=== PATIENT | female | born 1995 | race Caucasian/White ===

== ENCOUNTER 2020-04-12 13:29 | Emergency (ER) | payer OTHER ==
[~2020-04-12] VITALS: Ht 170.2 cm; Wt 163.3 kg
[~2020-04-12 13:29] MED LIST: BIRTHCONTROL; BUPR75; CYCL10 PO; IBUP600 PO; IBUP800 PO; Norco 5-325 Ta1 EACH PO; Prozac20 MG PO; Vibramycin100 MG PO; Zofran Odt4 MG SL
== END 2020-04-12 14:52 | disposition home or self-care (01) ==
LOC: ER 13:29
DX: U07.1 COVID-19 (principal); R05 Cough; R50.9 Fever, unspecified; Z88.0 Allergy status to penicillin
CPT/HCPCS: 71046; 99284-25

== ENCOUNTER 2020-11-22 18:38 | Emergency (ER) | payer OTHER ==
[~2020-11-22] VITALS: Ht 170.2 cm; Wt 154.2 kg
[~2020-11-22 18:38] MED LIST changes: -ONDA4 PO
[2020-11-22] MEDS ORDERED: Norco 5-325 Ta1 EACH PO (18:50)
[2020-11-22] MEDS ORDERED: ONDA4 PO (18:55)
== END 2020-11-22 18:59 | disposition home or self-care (01) ==
LOC: ER 18:38
DX: K80.70 Calculus of gallbladder and bile duct without cholecystitis without obstruction (principal); Z88.0 Allergy status to penicillin; Z91.013 Allergy to seafood
CPT/HCPCS: 99283; A9270

== ENCOUNTER → 2020-11-22 | Outpatient (CLI) | payer OTHER ==
[~2020-11-22] MED LIST changes: +ONDA4 PO
[2020-11-22 10:56] LABS: BASOPHILS ABSOLUTE AUTO 0.03 K/mm3 (0.00-0.23); BASOPHILS PERCENT AUTO 0 % (0-2); EOSINOPHILS ABSOLUTE AUTO 0.05 K/mm3 (0.00-0.68); EOSINOPHILS PERCENT AUTO 1 % (0-6); Hematocrit 43.2 % (33.0-51.0); Hemoglobin 14.3 g/dL (11.5-16.0); IMMATURE GRAN ABSOLUTE AUTO 0.03 K/mm3 (0.00-0.10); IMMATURE GRAN PERCENT AUTO 0 % (0-1); LYMPHOCYTES PERCENT AUTO 18 % (21-46); MONOCYTES ABSOLUTE AUTO 0.76 K/mm3 (0.16-1.47); MONOCYTES PERCENT AUTO 9 % (4-13); Mean Corpuscular HGB 28.8 pg (26.0-34.0); Mean Corpuscular HGB Conc 33.1 g/dL (31.5-36.5); Mean Corpuscular Volume 87 fL (80-100); Mean Platelet Volume 10.5 fL (9.1-12.4); NEUTROPHILS PERCENT AUTO 72 % (41-73); Platelet Count 280 K/mm3 (150-400); RDW Coefficient Variation 13.2 % (11.7-14.2); RDW Standard Deviation 41.1 fL (35.1-46.3); Red Blood Cell Count 4.96 M/mm3 (3.80-5.20); White Blood Cell Count 8.77 K/mm3 (4.00-11.30)
[2020-11-22 11:09] LABS: Alanine Aminotransfer (ALT/SGP 156 U/L (12-78); Albumin, Blood 3.6 g/dL (3.4-5.0); Albumin/Globulin Ratio 0.9 (0.8-1.8); Alk Phos 151 U/L (40-126); Anion Gap 11 mmol/L (6-16); Aspartate Aminotrans (AST/SGOT 263 U/L (12-37); Bilirubin, Total 0.7 mg/dL (0.1-1.0); Blood Urea Nitrogen 11 mg/dL (8-24); Bun/Creatinine Ratio 12.2 (12.0-20.0); CO2, Blood 24 mmol/L (21-32); Calcium, Blood 9.4 mg/dL (8.5-10.1); Chloride, Blood 107 mmol/L (98-108); Globulin, Blood 4.1 g/dL (2.2-4.0); Glomerular Filtration Rate >60 (60-); Glucose, Blood 92 mg/dL (70-99); Potassium, Blood 3.8 mmol/L (3.5-5.5); Sodium, Blood 142 mmol/L (136-145); Total Protein, Blood 7.7 g/dL (6.4-8.2)
== END | disposition home or self-care (01) ==
LOC: LAB SHORT 10:52 → LAB 10:52
PROVIDERS: Physician Assistant
DX: R10.9 Unspecified abdominal pain (principal)
CPT/HCPCS: 80053; 83690; 85025

== ENCOUNTER 2020-11-23 14:18 | Inpatient (IN) | payer OTHER ==
[~2020-11-23] VITALS: Ht 170.2 cm; Wt 156.8 kg
[~2020-11-23 14:18] MED LIST changes: +ONDA4 PO
[2020-11-23 15:20] LABS: BASOPHILS ABSOLUTE AUTO 0.04 K/mm3 (0.00-0.23); BASOPHILS PERCENT AUTO 0 % (0-2); EOSINOPHILS ABSOLUTE AUTO 0.01 K/mm3 (0.00-0.68); EOSINOPHILS PERCENT AUTO 0 % (0-6); Hematocrit 44.4 % (33.0-51.0); Hemoglobin 14.8 g/dL (11.5-16.0); IMMATURE GRAN ABSOLUTE AUTO 0.08 K/mm3 (0.00-0.10); IMMATURE GRAN PERCENT AUTO 1 % (0-1); LYMPHOCYTES ABSOLUTE AUTO 1.37 K/mm3 (0.84-5.20); LYMPHOCYTES PERCENT AUTO 8 % (21-46); MONOCYTES ABSOLUTE AUTO 0.97 K/mm3 (0.16-1.47); MONOCYTES PERCENT AUTO 6 % (4-13); Mean Corpuscular HGB 29.2 pg (26.0-34.0); Mean Corpuscular HGB Conc 33.3 g/dL (31.5-36.5); Mean Corpuscular Volume 88 fL (80-100); NEUTROPHILS ABSOLUTE AUTO 14.64 K/mm3 (1.96-9.15); NEUTROPHILS PERCENT AUTO 86 % (41-73); Platelet Count 270 K/mm3 (150-400); RDW Coefficient Variation 13.2 % (11.7-14.2); RDW Standard Deviation 42.3 fL (35.1-46.3); Red Blood Cell Count 5.07 M/mm3 (3.80-5.20); White Blood Cell Count 17.11 K/mm3 (4.00-11.30)
[2020-11-23 15:40] LABS: Alanine Aminotransfer (ALT/SGP 551 U/L (12-78); Albumin, Blood 3.2 g/dL (3.4-5.0); Albumin/Globulin Ratio 0.8 (0.8-1.8); Alk Phos 246 U/L (50-136); Anion Gap 8 mmol/L (6-16); Aspartate Aminotrans (AST/SGOT 620 U/L (12-37); Bilirubin, Total 2.5 mg/dL (0.1-1.0); Blood Urea Nitrogen 11 mg/dL (8-24); Bun/Creatinine Ratio 14.4 (12.0-20.0); CO2, Blood 23 mmol/L (21-32); Calcium, Blood 8.7 mg/dL (8.5-10.1); Chloride, Blood 111 mmol/L (98-108); Creatinine, Blood 0.76 mg/dL (0.40-1.00); Globulin, Blood 4.1 g/dL (2.2-4.0); Glomerular Filtration Rate >60 (60-); Glucose, Blood 171 mg/dL (70-99); Potassium, Blood 3.3 mmol/L (3.5-5.5); Sodium, Blood 142 mmol/L (136-145); Total Protein, Blood 7.3 g/dL (6.4-8.2)
[2020-11-23 18:16] LABS: SARS-Cov-2 (COVID-19) PCR, MMC NEGATIVE (NEGATIVE)
[2020-11-24 04:28] LABS: BASOPHILS ABSOLUTE AUTO 0.02 K/mm3 (0.00-0.23); BASOPHILS PERCENT AUTO 0 % (0-2); EOSINOPHILS ABSOLUTE AUTO 0.01 K/mm3 (0.00-0.68); EOSINOPHILS PERCENT AUTO 0 % (0-6); Hematocrit 41.5 % (33.0-51.0); Hemoglobin 13.5 g/dL (11.5-16.0); IMMATURE GRAN PERCENT AUTO 1 % (0-1); LYMPHOCYTES ABSOLUTE AUTO 1.22 K/mm3 (0.84-5.20); LYMPHOCYTES PERCENT AUTO 7 % (21-46); MONOCYTES ABSOLUTE AUTO 1.33 K/mm3 (0.16-1.47); MONOCYTES PERCENT AUTO 8 % (4-13); Mean Corpuscular HGB 28.8 pg (26.0-34.0); Mean Corpuscular HGB Conc 32.5 g/dL (31.5-36.5); Mean Corpuscular Volume 89 fL (80-100); Mean Platelet Volume 10.2 fL (9.1-12.4); NEUTROPHILS ABSOLUTE AUTO 14.45 K/mm3 (1.96-9.15); NEUTROPHILS PERCENT AUTO 84 % (41-73); Platelet Count 189 K/mm3 (150-400); RDW Coefficient Variation 13.5 % (11.7-14.2); RDW Standard Deviation 43.7 fL (35.1-46.3); Red Blood Cell Count 4.69 M/mm3 (3.80-5.20); White Blood Cell Count 17.13 K/mm3 (4.00-11.30)
[2020-11-24 04:47] LABS: Albumin, Blood 2.8 g/dL (3.4-5.0); Albumin/Globulin Ratio 0.8 (0.8-1.8); Bilirubin, Total 1.1 mg/dL (0.1-1.0); Bun/Creatinine Ratio 11.1 (12.0-20.0); Calcium, Blood 7.8 mg/dL (8.5-10.1); Creatinine, Blood 1.53 mg/dL (0.40-1.00); Globulin, Blood 3.6 g/dL (2.2-4.0); Potassium, Blood 4.4 mmol/L (3.5-5.5); Total Protein, Blood 6.4 g/dL (6.4-8.2)
--- NOTE | 2020-11-24 14:35 | NUR ---
SHIFT SUMMARY: GALLSTONES AND PANCREATITIS PATIENT IS ALERT AND ORIENTED X4. SHE IS VOIDING AND PASSING GAS. ABD IS TENDER TO TOUCH. BOWEL TONES ARE ACTIVE. HER PAIN IS MAINLY IN THE MIDDLE OF HER ABD PATIENT REPORTS. PATIENT WILL BE ON A DILAUDID ORDER CONTROL CLERK BLOOD BANK PUMP TO HELP MANAGE PAIN. SHE IS ABLE TO AMBULATE A SBA. PATIENT HAS ALSO BEEN NAUSEOUS AND HAS BEEN RECIEVING PHENERGAN AND ZOFRAN WHICH HELP. CALL LIGHT WITHIN REACH. THE PLAN IS TO BE TRANSFERRED TO [facility] TO HAVE THE PROCEDURE DONE POSSIBLY BY TOMORROW.
[2020-11-24 14:43] LABS: Calcium, Blood 7.6 mg/dL (8.5-10.1); Creatinine, Blood 1.72 mg/dL (0.40-1.00)
[2020-11-24 15:31] LABS: Albumin, Blood 2.7 g/dL (3.4-5.0); Albumin/Globulin Ratio 0.7 (0.8-1.8); Bilirubin, Total 1.7 mg/dL (0.1-1.0); Bun/Creatinine Ratio 13.8 (12.0-20.0); Calcium, Blood 7.9 mg/dL (8.5-10.1); Creatinine, Blood 1.81 mg/dL (0.40-1.00); Globulin, Blood 3.7 g/dL (2.2-4.0); Potassium, Blood 4.1 mmol/L (3.5-5.5); Total Protein, Blood 6.4 g/dL (6.4-8.2)
[2020-11-24 16:31] LABS: Source, Urine Clean Catch
[2020-11-24 16:49] LABS: Appearance, Urine Hazy (Clear); Blood, Urine 4+ (Neg); Color, Urine Yellow (P-Yellow); Glucose Qualitative, Urine Neg (Neg); Ketones, Urine Neg (Neg); Leukocyte Esterase, Urine 2+ (Neg); Nitrite, Urine Pos (Neg); Protein, Urine 4+ (Neg); Specific Gravity, Urine 1.025 (1.003-1.022); Urobilinogen, Urine 1+ (Normal)
[2020-11-24 16:57] LABS: Bilirubin, Urine 1+ (Neg)
[2020-11-24 16:58] LABS: Bacteria Many /hpf; Red Blood Cells, Urine 0-2 /hpf (0-2)
[2020-11-24 16:59] LABS: Squamous Epithelial Cells Rare /hpf (Few)
--- NOTE | 2020-11-24 17:35 | NUR ---
PATIENT IS BEING TRANSFERRED TO [facility] IN [facility]. THIS NURSE JUST GAVE REPORT TO ASHLEY CARSON AT [facility]. PATIENT AND MOTHER ARE AWARE OF THE TRANSPORT AND VERBALIZED UNDERSTANDING. PATIENT IS COMFORTABLE AT THIS TIME. PAIN IS MANAGED AND HAS NOT BEEN NAUSEOUS. TAY IS PATENT AND HAS DARK YELLOW URINE DRAINING. AWAITING FOR [facility] FOR TRANSPORT TO [place]. [employer]RA PACKET IS COMPLETE. PATIENT HAS CALL LIGHT WITHIN REACH. MOTHER AT BEDSIDE.
--- NOTE | 2020-11-24 18:02 | NUR ---
PATIENT LEFT WITH [facility] AT 1800 TODAY. SHE WAS ABLE TO TRANSFER [facility] A SBA. SHE IS ALERT AND ORIENTED X4. VS ARE WNL AND IS ON RA. PATIENT DENIES PAIN AT THIS TIME. SHE IS BEING TRANSPORTED TO [facility]. MOTHER IS AWARE AND WAS IN THE ROOM WITH TRANSPORT.
== END 2020-11-24 17:57 | disposition short-term general hospital (02) | DRG 871 ==
LOC: ER 14:18 → SURS 19:43
PROVIDERS: Family Medicine; Physician Assistant; ADMIT Hospitalist
DX: A41.9 Sepsis, unspecified organism (principal); K85.10 Biliary acute pancreatitis without necrosis or infection; N17.9 Acute kidney failure, unspecified; Z68.43 Body mass index [BMI] 50.0-59.9, adult; E87.2 Acidosis; K80.20 Calculus of gallbladder without cholecystitis without obstruction; Z20.822 Contact with and (suspected) exposure to COVID-19; E66.01 Morbid (severe) obesity due to excess calories; F32.A Depression, unspecified; F41.9 Anxiety disorder, unspecified; Z88.0 Allergy status to penicillin; Z91.013 Allergy to seafood; Z90.89 Acquired absence of other organs
CPT/HCPCS: 36415; 74150; 76705; 80048; 80053; 81001; 83605; 83690; 84703; 85025; 87040; 87086; 96361; 96365; 96368; 96375; 96376; 99285-25; J0744; J1170; J1885; J2270; J2405; J2550; J3010; J7030; J7120; U0004

== ENCOUNTER → 2021-12-05 | Outpatient (CLI) | payer OTHER ==
[~2021-12-05] MED LIST changes: +BUSP5 PO; +Cipro500 MG PO; +NELF250 PO; +ONDA4ODT MM; +VENL75ER PO
== END ==
LOC: LAB 15:30 → LAB SHORT 15:30
DX: O23.41 Unspecified infection of urinary tract in pregnancy, first trimester (principal); R35.0 Frequency of micturition; R30.9 Painful micturition, unspecified; N39.0 Urinary tract infection, site not specified; Z3A.00 Weeks of gestation of pregnancy not specified
CPT/HCPCS: 87077; 87086; 87186

== ENCOUNTER 2021-12-07 06:35 | Emergency (ER) | payer OTHER ==
[~2021-12-07] VITALS: Ht 170.2 cm; Wt 158.8 kg
[~2021-12-07 06:35] MED LIST changes: -BUSP5 PO; -Cipro500 MG PO; -NELF250 PO; -ONDA4ODT MM; -VENL75ER PO
[2021-12-07 07:29] LABS: Source, Urine Clean Catch
[2021-12-07 07:36] LABS: Appearance, Urine Clear (Clear); Bilirubin, Urine Neg (Neg); Blood, Urine 5+ (Neg); Color, Urine Yellow (P-Yellow); Glucose Qualitative, Urine Neg (Neg); Ketones, Urine Neg (Neg); Leukocyte Esterase, Urine 1+ (Neg); Nitrite, Urine Neg (Neg); Protein, Urine Neg (Neg); Urobilinogen, Urine NORM (Normal)
[2021-12-07 07:48] LABS: Bacteria Few /hpf; Squamous Epithelial Cells Few /hpf (Few); White Blood Cells, Urine 0-2 /hpf (0-5)
[2021-12-07] MEDS ORDERED: Cipro500 MG PO (08:21)
[2021-12-07] MEDS ORDERED: VENL75ER PO ×2 (08:21→08:23)
[2021-12-07] MEDS ORDERED: NELF250 PO (08:22)
[2021-12-07] MEDS ORDERED: BUSP5 PO (08:22)
[2021-12-07] MEDS ORDERED: ONDA4ODT MM (08:26)
== END 2021-12-07 08:45 | disposition home or self-care (01) ==
LOC: ER 06:35
PROVIDERS: Student in an Organized Health Care Education/Training Program
DX: N39.0 Urinary tract infection, site not specified (principal); R31.9 Hematuria, unspecified; Z88.0 Allergy status to penicillin; Z91.013 Allergy to seafood
CPT/HCPCS: 74176; 81001; 87086; A9270; J1885

== ENCOUNTER 2022-01-06 15:37 | Emergency (ER) | payer OTHER ==
[~2022-01-06] VITALS: Ht 172.7 cm; Wt 136.1 kg
[~2022-01-06 15:37] MED LIST changes: +BUSP5 PO; +Cipro500 MG PO; +NELF250 PO; +ONDA4ODT MM; +VENL75ER PO
[2022-01-06] MEDS ORDERED: Cleocin HCl150 MG PO (16:11)
== END 2022-01-06 16:13 | disposition home or self-care (01) ==
LOC: ER 15:37
DX: K04.7 Periapical abscess without sinus (principal); Z88.0 Allergy status to penicillin; Z91.013 Allergy to seafood; Z79.899 Other long term (current) drug therapy
CPT/HCPCS: 99282

== ENCOUNTER 2022-01-10 07:58 | Emergency (ER) | payer OTHER ==
[~2022-01-10] VITALS: Ht 170.2 cm; Wt 158.8 kg
[~2022-01-10 07:58] MED LIST changes: +Cleocin HCl150 MG PO
[2022-01-10 09:03] LABS: BASOPHILS ABSOLUTE AUTO 0.05 K/mm3 (0.00-0.23); BASOPHILS PERCENT AUTO 1 % (0-2); EOSINOPHILS ABSOLUTE AUTO 0.11 K/mm3 (0.00-0.68); EOSINOPHILS PERCENT AUTO 2 % (0-6); Hematocrit 43.2 % (33.0-51.0); Hemoglobin 14.2 g/dL (11.5-16.0); IMMATURE GRAN ABSOLUTE AUTO 0.05 K/mm3 (0.00-0.10); IMMATURE GRAN PERCENT AUTO 1 % (0-1); LYMPHOCYTES PERCENT AUTO 28 % (21-46); MONOCYTES ABSOLUTE AUTO 0.94 K/mm3 (0.16-1.47); MONOCYTES PERCENT AUTO 13 % (4-13); Mean Corpuscular HGB 28.1 pg (26.0-34.0); Mean Corpuscular HGB Conc 32.9 g/dL (31.5-36.5); Mean Corpuscular Volume 86 fL (80-100); Mean Platelet Volume 10.4 fL (9.1-12.4); NEUTROPHILS ABSOLUTE AUTO 4.04 K/mm3 (1.96-9.15); NEUTROPHILS PERCENT AUTO 56 % (41-73); Platelet Count 229 K/mm3 (150-400); RDW Coefficient Variation 13.9 % (11.7-14.2); RDW Standard Deviation 42.7 fL (35.1-46.3); Red Blood Cell Count 5.05 M/mm3 (3.80-5.20); White Blood Cell Count 7.19 K/mm3 (4.00-11.30)
[2022-01-10 09:18] LABS: Albumin, Blood 3.5 g/dL (3.4-5.0); Albumin/Globulin Ratio 0.8 (0.8-1.8); Bilirubin, Total 0.3 mg/dL (0.1-1.0); Calcium, Blood 9.4 mg/dL (8.5-10.1); Creatinine, Blood 0.73 mg/dL (0.40-1.00); Globulin, Blood 4.5 g/dL (2.2-4.0); Potassium, Blood 3.6 mmol/L (3.5-5.5)
[2022-01-10] MEDS ORDERED: Flagyl500 MG PO (10:36)
[2022-01-10] MEDS ORDERED: LEVO750 PO (10:36)
[2022-01-10] MEDS ORDERED: Diflucan150 MG PO (11:24)
== END 2022-01-10 11:24 | disposition home or self-care (01) ==
LOC: ER 07:58
PROVIDERS: Physician Assistant
DX: K04.7 Periapical abscess without sinus (principal); F32.A Depression, unspecified; Z88.0 Allergy status to penicillin; Z91.013 Allergy to seafood; Z79.899 Other long term (current) drug therapy
CPT/HCPCS: 70487; 80053; 85025; 96365-59; 96375; 99283-25; A9270; J1885; Q9967

== ENCOUNTER 2022-06-06 20:38 | Emergency (ER) | payer OTHER ==
[~2022-06-06] VITALS: Ht 170.2 cm; Wt 145.2 kg
[~2022-06-06 20:38] MED LIST changes: +Diflucan150 MG PO; +Flagyl500 MG PO; +LEVO750 PO
[2022-06-06 20:46] VITALS: BP 138/104
[2022-06-06] MEDS ORDERED: BUPROPION XL150 M1 PO (20:49)
[2022-06-06] MEDS ORDERED: BUTALB-ACETAMI1 EAC7 PO (20:50)
[2022-06-06] MEDS ORDERED: OMEP20ER (20:50)
== END 2022-06-06 22:02 | disposition home or self-care (01) ==
LOC: ER 20:38
DX: S61.211A Laceration without foreign body of left index finger without damage to nail, initial encounter (principal); Z23 Encounter for immunization; Z88.0 Allergy status to penicillin; Z91.013 Allergy to seafood; W27.2XXA Contact with scissors, initial encounter
CPT/HCPCS: 12001; 90471; 90714; 99282-25

== ENCOUNTER → 2022-07-07 | Outpatient (CLI) | payer OTHER ==
[~2022-07-07] MED LIST changes: +BUPROPION XL150 M1 PO; +BUTALB-ACETAMI1 EAC7 PO; +OMEP20ER
== END | disposition home or self-care (01) ==
LOC: LAB SHORT 18:26 → LAB 18:26
PROVIDERS: Obstetrics & Gynecology
DX: Z01.419 Encounter for gynecological examination (general) (routine) without abnormal findings (principal)
CPT/HCPCS: G0145

== ENCOUNTER → 2023-03-20 | Outpatient (CLI) | payer OTHER | LOC: LAB SHORT 09:35 → LAB 09:35 | DX: O99.213 Obesity complicating pregnancy, third trimester (principal); Z3A.00 Weeks of gestation of pregnancy not specified | CPT/HCPCS: 87081; 87150; 87184 ==

== ENCOUNTER 2023-05-23 08:58 | Day surgery (SDC) | payer OTHER | END 2023-05-23 23:35 | disposition home or self-care (01) | LOC: WOUND 08:58 | DX: O90.0 Disruption of cesarean delivery wound (principal); J45.909 Unspecified asthma, uncomplicated; Z88.0 Allergy status to penicillin | CPT/HCPCS: A6213; G0463 ==

== ENCOUNTER 2023-06-07 04:51 | Day surgery (SDC) | payer OTHER | END 2023-06-07 23:04 | disposition home or self-care (01) | LOC: WOUND 04:51 | DX: O90.0 Disruption of cesarean delivery wound (principal) | CPT/HCPCS: A6213; G0463 ==

== ENCOUNTER 2023-06-14 02:44 | Day surgery (SDC) | payer OTHER | END 2023-06-14 22:58 | disposition home or self-care (01) | LOC: WOUND 02:44 | DX: O90.0 Disruption of cesarean delivery wound (principal) | CPT/HCPCS: A6213; G0463 ==

== ENCOUNTER 2023-06-21 03:43 | Day surgery (SDC) | payer OTHER | END 2023-06-21 23:15 | disposition home or self-care (01) | LOC: WOUND 03:43 | DX: O90.0 Disruption of cesarean delivery wound (principal) | CPT/HCPCS: A6213; G0463 ==

== ENCOUNTER 2023-08-15 03:03 | Day surgery (SDC) | payer OTHER | END 2023-08-15 23:12 | disposition home or self-care (01) | LOC: WOUND 03:03 | DX: O90.0 Disruption of cesarean delivery wound (principal) | CPT/HCPCS: G0463 ==